=== PATIENT | male | born 1965 | race Caucasian/White ===

== ENCOUNTER 2020-03-27 06:37 | Inpatient (IN) ==
[~2020-03-27 06:37] MED LIST: *HR* OxyCODONE ER (12 HR) 10 MG TABLET PO SCH; Acetaminophen IV 1,000 MG/100 ML INFUS..BTL IVPB SCH; Bacitracin 50,000 UNIT, Polymyxin B Sulfate 500,000 UNIT, Sodium Chloride IRRigation 1,... IR ONE; Famotidine 20 MG/2 ML VIAL IVP SCH; Pregabalin 75 MG CAPSULE PO SCH; Ringers Solution, Lactated 1,000 ML IVC SCH
[2020-03-27] MEDS ORDERED: CeFAZolin Syr 2,000MG/20 ML 2,000 MG/20 ML SYRINGE IVPB ONE (07:08)
[2020-03-27] MEDS ORDERED: Ondansetron 4 MG/2 ML VIAL ONE (07:21)
[2020-03-27] MEDS ORDERED: Lidocaine -MPF 2% 2 ML VIAL ONE ×2 (07:21→07:38)
[2020-03-27] MEDS ORDERED: Dexamethasone 4 MG/ML VIAL ONE (07:21)
[2020-03-27] MEDS ORDERED: *HR* Midazolam HCl 2 MG/2 ML VIAL ONE (07:21)
[2020-03-27] MEDS ORDERED: *HR* FentaNYL (PF) 100 MCG/2 ML VIAL ONE (07:21)
[2020-03-27] MEDS ORDERED: *HR* Succinylcholine 200 MG/10 ML VIAL IVP ONE (07:21)
[2020-03-27] MEDS ORDERED: *HR* Propofol 200 MG/20 ML VIAL IVP ONE (07:22)
[2020-03-27] MEDS ORDERED: *HR* Phenylephrine 10 MG/ML VIAL ONE (07:24)
[2020-03-27] MEDS ORDERED: *HR* Remifentanil 1 MG VIAL IVP ONE (07:24)
[2020-03-27] MEDS ORDERED: Lidocaine HCL 4 ML Topical Solution (Laryng-O-Jet Kit Sterile Pak) TP ONE (07:38)
[2020-03-27] MEDS ORDERED: *HR* Metoprolol 5 MG/5 ML VIAL IVP PRN (07:50)
[2020-03-27] MEDS ORDERED: Albuterol 2.5 MG/3 ML NEBULIZER IH PRN (07:50)
[2020-03-27] MEDS ORDERED: Naloxone 0.4 MG/ML INJ IVP PRN ×2 (07:50→12:01)
[2020-03-27] MEDS ORDERED: *HR* FentaNYL (PF) 100 MCG/2 ML VIAL IVP PRN (07:50)
[2020-03-27] MEDS ORDERED: *HR* Rocuronium Bromide 50 MG/5 ML VIAL ONE (08:53)
[2020-03-27] MEDS: *HR* HYDROmorphone PF 0.5 MG/0.5 ML SYRINGE IVP PRN ×4 (11:21→11:44)
[2020-03-27] MEDS ORDERED: Ringers Solution, Lactated 1,000 ML IVC SCH (12:01)
[2020-03-27] MEDS ORDERED: Ondansetron 4 MG/2 ML VIAL IVP PRN (12:01)
[2020-03-27] MEDS: *HR* OxyCODONE Immed Rel 5 MG TABLET PO PRN ×2 (13:14→18:28)
[2020-03-27] MEDS ORDERED: CeFAZolin 2 GM/120 ML BAG IVPB SCH (16:00)
[2020-03-27] MEDS: *HR* HYDROcodone/Acet 5/325 mg TABLET PO PRN (21:32)
[2020-03-27] MEDS ORDERED: Ketorolac 30 MG/ML VIAL IVP ONE (22:25)
[2020-03-28] MEDS: *HR* OxyCODONE Immed Rel 5 MG TABLET PO PRN ×4 (00:20→17:44)
[2020-03-28] MEDS ORDERED: Temazepam 15 MG CAPSULE PO PRN ×2 (00:21→00:24)
[2020-03-28] MEDS: *HR* HYDROcodone/Acet 5/325 mg TABLET PO PRN ×2 (03:30→14:13)
[2020-03-28] MEDS: lisinopriL 10 MG TABLET PO SCH (08:45)
[2020-03-28] MEDS: Acetaminophen 325 MG TABLET PO PRN ×2 (08:45→17:44)
[2020-03-28] MEDS: diazePAM 5 MG TABLET PO PRN (22:09)
[2020-03-29] MEDS: *HR* HYDROcodone/Acet 5/325 mg TABLET PO PRN ×2 (06:39→19:46)
[2020-03-29] MEDS: Acetaminophen 325 MG TABLET PO PRN (07:40)
[2020-03-29] MEDS: lisinopriL 10 MG TABLET PO SCH (07:40)
[2020-03-29 11:28] LABS: BUN/Creatinine Ratio 15 (6-26); Blood Urea Nitrogen 10 mg/dL (6-20); Calcium 9.1 mg/dL (8.6-10.3); Carbon Dioxide 25 mEq/L (23-29); Chloride 97 mEq/L (98-107); Glucose 168 mg/dL (70-105); Osmolality,Calculated 275 (280-300); Potassium 3.8 mEq/L (3.5-5.1); Sodium 131 mEq/L (136-145); eGFR For African Americans > 60 (> 60); eGFR For Non-African Americans > 60 (> 60)
[2020-03-29 11:42] LABS: Hematocrit 38.7 % (37.5-50.1); Hemoglobin 13.3 g/dL (12.9-16.9); Mean Corpuscular HGB Conc 34.4 g/dL (31.6-35.5); Mean Corpuscular Hemoglobin 31.9 pg (28.0-33.3); Mean Corpuscular Volume 92.8 fL (83.0-100.0); Red Blood Count 4.17 M/mcL (4.19-5.50); Red Cell Distribution Width 42.7 % (11.5-14.5); White Blood Count 14.7 K/mcL (4.3-11.1)
[2020-03-29 11:43] LABS: Lymphocytes # 0.7 K/mcL (0.6-4.6); Lymphocytes % 4.7 %; Mean Platelet Volume 11.4 fL (9.4-12.4); Neutrophils # 12.9 K/mcL (1.6-8.9); Platelet Count 252 K/mcL (140-400); Segmented Neutrophils % 87.9 %
[2020-03-29 11:44] LABS: Basophils % 0.1 %
[2020-03-29] MEDS: *HR* OxyCODONE Immed Rel 5 MG TABLET PO PRN ×2 (12:01→16:38)
[2020-03-29] MEDS: diazePAM 5 MG TABLET PO PRN ×2 (12:56→23:24)
[2020-03-29 13:01] LABS: Troponin I 0.06 ng/mL (< 0.04)
[2020-03-29] MEDS ORDERED: *HR* Metoprolol 5 MG/5 ML VIAL IVP PRN (13:42)
[2020-03-29 14:06] LABS: Bilirubin,Urine Negative (Negative); Blood,Urine Negative (Negative); Clarity,Urine Clear (Clear); Color,Urine Light-Yellow (Yellow); Glucose,Urine (UA) >=1000 mg/dL (Normal); Ketones,Urine 10 mg/dL (Negative); Leukocyte Esterase,Urine Negative (Negative); Mucus,Urine Few per lpf (None-Few); Nitrite,Urine Negative (Negative); Protein,Urine 30 mg/dL (Neg-Trace); RBC,Urine 0-3 per hpf (0-3); Specific Gravity,Urine 1.023 (1.010-1.025); Urobilinogen,Urine Normal (Normal); WBC,Urine 0-3 per hpf (0-3)
[2020-03-29] MEDS ORDERED: 0.9 % Sodium Chloride 1,000 ML IVC SCH (18:15)
[2020-03-30 02:35] LABS: BUN/Creatinine Ratio 20 (6-26); Blood Urea Nitrogen 12 mg/dL (6-20); Calcium 8.4 mg/dL (8.6-10.3); Carbon Dioxide 22 mEq/L (23-29); Chloride 96 mEq/L (98-107); Glucose 149 mg/dL (70-105); Osmolality,Calculated 267 (280-300); Potassium 3.9 mEq/L (3.5-5.1); Sodium 127 mEq/L (136-145); eGFR For African Americans > 60 (> 60); eGFR For Non-African Americans > 60 (> 60)
[2020-03-30 02:42] LABS: Chol/HDL Ratio 2.3 (0-4.9)
[2020-03-30] MEDS: *HR* OxyCODONE Immed Rel 5 MG TABLET PO PRN ×5 (02:45→22:12)
[2020-03-30 02:51] LABS: Thyroid Stimulating Hormone 1.129 mcIU/mL (0.340-5.600)
[2020-03-30 03:46] LABS: Hematocrit 35.9 % (37.5-50.1); Hemoglobin 12.1 g/dL (12.9-16.9); Mean Corpuscular HGB Conc 33.7 g/dL (31.6-35.5); Mean Corpuscular Hemoglobin 31.4 pg (28.0-33.3); Mean Corpuscular Volume 93.2 fL (83.0-100.0); Mean Platelet Volume 11.7 fL (9.4-12.4); Platelet Count 235 K/mcL (140-400); Red Blood Count 3.85 M/mcL (4.19-5.50); Red Cell Distribution Width 12.4 % (11.5-14.5); White Blood Count 13.5 K/mcL (4.3-11.1)
[2020-03-30] MEDS: diazePAM 5 MG TABLET PO PRN ×2 (08:34→14:08)
[2020-03-30] MEDS: lisinopriL 10 MG TABLET PO SCH (08:34)
[2020-03-30] MEDS: Acetaminophen 325 MG TABLET PO PRN ×2 (08:34→14:08)
[2020-03-30 09:23] LABS: Estimated Average Glucose 126 mg/dl
[2020-03-31 01:03] LABS: Hematocrit 35.9 % (37.5-50.1); Hemoglobin 12.2 g/dL (12.9-16.9); Mean Corpuscular Hemoglobin 30.6 pg (28.0-33.3); Mean Platelet Volume 11.3 fL (9.4-12.4); Platelet Count 266 K/mcL (140-400); Red Blood Count 3.99 M/mcL (4.19-5.50); Red Cell Distribution Width 12.4 % (11.5-14.5)
[2020-03-31 01:22] LABS: BUN/Creatinine Ratio 23 (6-26); Blood Urea Nitrogen 14 mg/dL (6-20); Calcium 8.5 mg/dL (8.6-10.3); Carbon Dioxide 23 mEq/L (23-29); Chloride 92 mEq/L (98-107); Glucose 142 mg/dL (70-105); Osmolality,Calculated 263 (280-300); Potassium 3.8 mEq/L (3.5-5.1); Sodium 125 mEq/L (136-145); eGFR For African Americans > 60 (> 60); eGFR For Non-African Americans > 60 (> 60)
[2020-03-31] MEDS: Acetaminophen 325 MG TABLET PO PRN ×3 (04:08→16:30)
[2020-03-31] MEDS: lisinopriL 10 MG TABLET PO SCH (08:54)
[2020-03-31] MEDS: *HR* OxyCODONE Immed Rel 5 MG TABLET PO PRN ×3 (08:54→20:49)
[2020-03-31] MEDS: diazePAM 5 MG TABLET PO PRN ×2 (08:55→16:33)
[2020-03-31 10:25] LABS: BUN/Creatinine Ratio 19 (6-26); Blood Urea Nitrogen 13 mg/dL (6-20); Calcium 9.2 mg/dL (8.6-10.3); Carbon Dioxide 24 mEq/L (23-29); Chloride 100 mEq/L (98-107); Glucose 136 mg/dL (70-105); Magnesium 2.4 mg/dL (1.6-2.6); Osmolality,Calculated 268 (280-300); Phosphorous 2.6 mg/dL (2.7-4.5); Potassium 3.6 mEq/L (3.5-5.1); Sodium 128 mEq/L (136-145); eGFR For African Americans > 60 (> 60); eGFR For Non-African Americans > 60 (> 60)
[2020-03-31] MEDS ORDERED: 0.9 % Sodium Chloride 1,000 ML IVC SCH (17:15)
[2020-04-01] MEDS: diazePAM 5 MG TABLET PO PRN (00:52)
[2020-04-01 01:46] LABS: Basophils % 0.3 %; Eosinophils # 0.1 K/mcL (0.0-0.6); Eosinophils % 0.6 %; Hematocrit 37.8 % (37.5-50.1); Hemoglobin 12.5 g/dL (12.9-16.9); Immature Granulocytes % 0.7 % (0-4); Lymphocytes # 1.6 K/mcL (0.6-4.6); Lymphocytes % 18.9 %; Mean Corpuscular HGB Conc 33.1 g/dL (31.6-35.5); Mean Corpuscular Hemoglobin 30.5 pg (28.0-33.3); Mean Corpuscular Volume 92.2 fL (83.0-100.0); Mean Platelet Volume 11.3 fL (9.4-12.4); Monocytes # 1.2 K/mcL (0.0-1.3); Monocytes % 13.3 %; Neutrophils # 5.7 K/mcL (1.6-8.9); Platelet Count 342 K/mcL (140-400); Red Cell Distribution Width 12.4 % (11.5-14.5); Segmented Neutrophils % 66.2 %; White Blood Count 8.6 K/mcL (4.3-11.1)
[2020-04-01 01:54] LABS: BUN/Creatinine Ratio 18 (6-26); Blood Urea Nitrogen 13 mg/dL (6-20); Calcium 8.7 mg/dL (8.6-10.3); Carbon Dioxide 25 mEq/L (23-29); Chloride 97 mEq/L (98-107); Glucose 117 mg/dL (70-105); Osmolality,Calculated 277 (280-300); Potassium 3.3 mEq/L (3.5-5.1); Sodium 133 mEq/L (136-145); eGFR For African Americans > 60 (> 60); eGFR For Non-African Americans > 60 (> 60)
[2020-04-01] MEDS: *HR* OxyCODONE Immed Rel 5 MG TABLET PO PRN ×2 (03:32→08:16)
[2020-04-01 06:57] VITALS: BP 134/86
[2020-04-01] MEDS: lisinopriL 10 MG TABLET PO SCH (08:16)
== END 2020-04-01 13:25 | disposition home health service (06) | DRG 454 ==
LOC: 3NENU 06:37 → SAMDAY 06:37 → 3NENU 11:57
PROVIDERS: ADMIT Orthopaedic Surgery Orthopaedic Surgery of the Spine; ATTEND Orthopaedic Surgery Orthopaedic Surgery of the Spine